=== PATIENT | female | born 1965 | race African-American/Black ===

== ENCOUNTER → 2016-07-24 | Outpatient (CLI) | payer OTHER ==
[~2016-07-24] MED LIST: ACETAMINOPHEN PO; ADVIL200 M2 PO; ALBUTEROL17 GM INH; ALPRAZOLAM PO; AMLODIPINE BESYL5 MG PO; ARIXTRA2.5 MG/0.5 INJ; ASPIRINEC PO; ATENOLOL25 MG PO; AUGMENTIN PO; BENADRYL; BUSPAR PO; CALAN; CALAN PO; CIPRO PO; DARVOCET-N 1001 TAB PO; DEPAKOTE PO; DIVALPROEX SOD500 M1 PO; DOXYCYCLINE150 MG PO; DURAGESIC TOP; FIORICET 50-321 EACH PO; FIORINAL CAPSUL1 CAP PO; FISH OIL 1,2001 CAP PO; FLEXERIL PO; FLEXERIL10 M1 PO; FLEXERIL10 MG PO; GEODAN; HCTZ PO; HYDROCHLOROTH12.5 MG PO; HYDROCHLOROTHIA25 MG PO; IMITREX PO; INVEGA PO; KCL PO; KEFLEX PO; KLONOPIN PO; LASIX PO; LISINOPRIL PO; LORTAB 7.5-5001 TAB PO; METOPROLOL TART25 MG PO; MOBIC PO; MULTIVITAMIN WOMENS; NEURONTIN100 MG PO; NORCO 7.5-3251 EACH PO; NORVASC PO; NORVASC10 MG PO; ORUDIS75 M1 DOB; PARAFON FORTE500 MG PO; PATIENT'S PHARMACY; PERCOCET5/325 PO; PROTONIX PO; PROZAC PO; PYRIDIUM PO; SEROQUEL XR150 MG PO; TOPROL XL PO; TRAMADOL HCL50 M1 PO; TRILEPTAL PO; TYLENOL #3; VERAPAMIL ER PO; VICODIN 5/500 T1 TAB PO; VICODIN PO; VOLTAREN75 MG PO; ZANTAC PO
--- NOTE | ~2016-07-24 | CR63 ---
[facility] A Service [facility] RADIOLOGY TEXT RESULTS PATIENT: JAKE ORTIZ LOCATION: [facility] : 61 UNIT #: [id number] AGE: [address]: Joanna Lund MD SEX: F ORDER DR: [id number] [facility] [address] [place], [place] [address] [id number] O MR#: [id number] Acc #: [id number] NAME: JAKE ORTIZ : 1965 SEX: F STUDY DATE/TIME: 07/24/2016 11:53 UNIT: [facility] ROOM: STUDY DESCRIPTION: CR Chest 2 View Attending Physician: Joanna Lund M.D. Referring Physician: Joanna Lund M.D. Ordering Physician: Joanna Lund M.D. Primary Care Physician: Stan Anand M.D. MEDICAL IMAGING REPORT This report is preliminary unless electronic signature is present EXAM PA and lateral chest HISTORY Preop right wrist surgery. COMPARISON 08/27/2014 FINDINGS PA and lateral examination of the chest upright shows a good expansion of the parenchyma with a normal distribution of the pulmonary vascularity. There is no indication of congestion, effusion, infiltrate, tumor, or nodular density. The pleural reflections and diaphragmatic contours are normal. The cardiac silhouette and mediastinal anatomy is within normal limits. IMPRESSION Normal chest. Dictated by... Crispin García M.D. THIS IS AN ELECTRONICALLY VERIFIED REPORT Crispin García M.D. at 07/25/2016 2:08 PM LISBETH/radha TD: 07/24/2016 15:34 JOB #: [id number] MEDICAL IMAGING REPORT [facility] A Service [facility] RADIOLOGY TEXT RESULTS PATIENT: JAKE ORTIZ LOCATION: [facility] : 61 UNIT #: [id number] AGE: [address]: Joanna Lund MD SEX: F ORDER DR: COPY
--- NOTE | ~2016-07-24 | EKG ---
PATIENT: JAKE ORTIZ UNIT #: [id number] Ventricular Rate: 67 BPM Atrial Rate: 67 BPM P-R Interval: 176 ms QRS Duration: 86 ms Q-T Interval: 396 ms QTC Calculation(Bezet): 418 ms P Otoe: 58 degrees Calculated R Otoe: 27 degrees Calculated T Otoe: 48 degrees Diagnosis Line: Normal sinus rhythm Diagnosis Line: Normal ECG Diagnosis Line: When compared with ECG of 30-NOV-2013 12:08, Diagnosis Line: No significant change was found Diagnosis Line: Confirmed by ELVIN MAURICIO MD ([id number]) on Diagnosis Line: 07/24/2016 4:15:56 PM INTERPRETING MD: LULY RUBY
[2016-07-24 11:49] LABS: HEMATOCRIT 39.2 % (35.0-45.0); HEMOGLOBIN 12.9 gm/dL (12.0-16.0); MEAN CELL VOLUME 93.6 FL (83-96); MEAN CORPUSCULAR HEMOGLOBIN 30.9 PG (28-34); MEAN CORPUSCULAR HGB CONC 33.1 g/dL (30-36); MEAN PLATELET VOLUME 9.1 FL (6.5-11.5); RED BLOOD COUNT 4.19 X10e (3.90-5.30); RED CELL DISTRIBUTION WIDTH 14.7 % (11.0-15.5); WHITE BLOOD COUNT 5.7 X10e3 (4.0-10.5)
[2016-07-24 11:52] LABS: URINE APPEARANCE CLEAR; URINE BILIRUBIN NEG (NEG); URINE BLOOD NEG (NEG); URINE COLOR YELLOW; URINE GLUCOSE NEG (NEG); URINE KETONE NEG (NEG); URINE LEUKOCYTE ESTERASE NEG (NEG); URINE NITRATE NEG (NEG); URINE PH 7.5 (5-8); URINE PROTEIN NEG (NEG); URINE SPECIFIC GRAVITY 1.018 (1.003-1.035); URINE UROBILINOGEN 0.2 MG/DL (NEG)
[2016-07-24 11:57] LABS: URINE SOURCE CLEAN CATCH
[2016-07-24 12:14] LABS: BLOOD UREA NITROGEN 12 mg/dL (9-23); BUN/CREATININE RATIO 13.33; CALCIUM SERUM 9.3 mg/dL (8.4-10.2); CARBON DIOXIDE 29 mmol/L (22-31); CHLORIDE 104 mmol/L (100-111); CREATININE SERUM 0.9 mg/dL (0.6-1.4); GLOM FILT RATE Estimated ABOVE60 mL/min (>60); GLUCOSE FASTING 111 mg/dL (70-110); POTASSIUM 4.2 mmol/L (3.5-5.1); SODIUM 139 mmol/L (135-145)
== END | disposition home or self-care (01) ==
LOC: CAMB 10:46
PROVIDERS: Orthopaedic Surgery
DX: Z01.818 Encounter for other preprocedural examination (principal); M65.4 Radial styloid tenosynovitis [de Quervain]
CPT/HCPCS: 36415; 71020; 80048; 81003; 85027; 93005

== ENCOUNTER → 2016-07-27 | Day surgery (SDC) | payer OTHER ==
--- NOTE | ~2016-07-27 | OR ---
Unit #: [id number] #: [id number] Patient: JAKE ORTIZ [id number] [address] [place], [place] [address] [id number] O MR#: [id number] NAME: JAKE ORTIZ ROOM: Date of Procedure: 07/27/2016 Admission Date: 07/27/2016 Surgeon: Joanna Lund M.D. : 1965 Attending Physician: Joanna Lund M.D. Referring Physician: Joanna Lund M.D. Primary Care Physician: Tamika Live M.D. OPERATIVE REPORT PREOPERATIVE DIAGNOSIS De Quervain tendonitis, right wrist. POSTOPERATIVE DIAGNOSIS De Quervain tendonitis, right wrist. PROCEDURE PERFORMED Release of direct De Quervain tendonitis. HISTORY AND FINDINGS The patient is a 51-year-old, who has been having progressively increasing pain, swelling in her right wrist with tenderness and limited motion of her thumb. She has a positive Ambrosio's. As she failed conservative measures, was offered release. Risks of anesthesia and complications have been reviewed namely injury to the superficial branch of the radial nerve was discussed and possible neuroma and need for further surgery and the patient voices understanding and wishes to proceed. DESCRIPTION OF PROCEDURE After induction of general anesthesia, the patient's right wrist was prepped and draped in the usual sterile manner. Time-out was called. Operative site was confirmed and then a longitudinal skin incision was made over the radial styloid approximately 2 cm long. Incision was deepened down and by sharp dissection, carried down to the subcutaneous tissue, following which a blunt dissection was carried retracting the superficial nerve on either side of the incision. The extensor retinaculum over the first dorsal compartment was found to be quite thick and also there appeared to have calcification of the sheath, so using a 15 blade, an incision was made over the dorsal sheath and using a tenotomy scissors, the first dorsal compartment was released both proximally and distally. Care was taken to avoid any injury to the tendons in the first dorsal compartment and a portion of the sheath was sent for histopathology as she had some calcification possibly a uric deposition. Then, the tendon was explored and no second compartment was identified. The wrist was flexed and extended and confirmed no volar subluxation of the tendons of the first dorsal compartment namely the abductor pollicis and the extensor pollicis brevis. The wound was copiously irrigated. Hemostasis was obtained. 4-0 nylon was used to approximate the skin. Sterile compression dressing was applied. Tourniquet was let down. Blood loss minimal. The patient received preoperative antibiotics. Tolerated the procedure well and was transferred to the recovery room in satisfactory condition. Unit #: [id number] #: [id number] Patient: JAKE ORTIZ POSTOPERATIVE INSTRUCTIONS 1. Ice packs to the right wrist and range of motion to the fingers. 2. Percocet 5 mg q.6 to 8 hours p.r.n. 3. She was given a followup appointment and return to my office in 10 days. If any problems, to contact me. Dictated by... Nolan Kim/jessica TD: 07/27/2016 12:58 JOB #: [id number] OPERATIVE REPORT X Joanna Lund MD X PROCEDURE OPERATIVE NOTE
== END | disposition home or self-care (01) ==
LOC: CSUR 06:32
DX: M65.4 Radial styloid tenosynovitis [de Quervain] (principal); D64.9 Anemia, unspecified; F17.210 Nicotine dependence, cigarettes, uncomplicated; Z87.442 Personal history of urinary calculi; Z88.8 Allergy status to other drugs, medicaments and biological substances; Z90.49 Acquired absence of other specified parts of digestive tract; Z98.51 Tubal ligation status; Z98.890 Other specified postprocedural states
CPT/HCPCS: 88304; J0690; J2250; J3010

== ENCOUNTER → 2016-10-12 | Outpatient (CLI) | payer OTHER ==
[~2016-10-12] MED LIST changes: +MULTI VITAMIN1 EACH PO; +TYLENOL #3 PO
--- NOTE | ~2016-10-12 | CR151 ---
[facility] A Service of [facility] RADIOLOGY TEXT RESULTS PATIENT: JAKE ORTIZ LOCATION: [facility] : 61 UNIT #: [id number] AGE: [address]: Joanna Lund MD SEX: F ORDER DR: [id number] [facility] [address] [facility]. [place], [place] [address] [id number] O MR#: [id number] Acc #: [id number] NAME: JAKE ORTIZ : 1965 SEX: F STUDY DATE/TIME: 10/12/2016 13:22 UNIT: [facility] ROOM: STUDY DESCRIPTION: CR Hip Min 2 Views Rt Attending Physician: Joanna Lund M.D. Referring Physician: Joanna Lund M.D. Ordering Physician: Joanna Lund M.D. Primary Care Physician: Stan Anand M.D. MEDICAL IMAGING REPORT This report is preliminary unless electronic signature is present EXAM Right hip, 10/12/16. INDICATIONS Osteoarthritis in a 51-year-old female. Hip and knee pain on the right, knee giving out. History of right femur fracture. Symptoms began 2-3 years ago. TECHNIQUE Two views of the right hip. COMPARISON 11/29/13 FINDINGS There is an old healed fracture deformity of the right hip. Residual metallic densities intimately associated with the right hip persist and are not significantly changed. These may reflect sequela of the prior trauma or surgical procedures. Correlate clinically. No acute fracture. There is no significant degenerative change of the right hip. Bony pelvis intact. IMPRESSION 1. No acute fracture. Chronic postoperative/post traumatic changes of the right hip. No significant change from the prior study. Dictated by... Francisco Saxena M.D. THIS IS AN ELECTRONICALLY VERIFIED REPORT Francisco Saxena M.D. at 10/16/2016 11:51 AM JOSSY/shanice [facility] A Service [facility] RADIOLOGY TEXT RESULTS PATIENT: JAKE ORTIZ LOCATION: [facility] #: [id number] : 61 UNIT #: [id number] AGE: [address]: Joanna Lund MD SEX: F ORDER DR: TD: 10/12/2016 19:44 JOB #: [id number] MEDICAL IMAGING REPORT Page 1 of 1 COPY
--- NOTE | ~2016-10-12 | CR170 ---
[facility] A Service of [facility] RADIOLOGY TEXT RESULTS PATIENT: JAKE ORTIZ LOCATION: [facility] : 61 UNIT #: [id number] AGE: [address]: Joanna Lund MD SEX: F ORDER DR: [id number] [facility] [address] [facility] [place], [place] [address] [id number] O MR#: [id number] Acc #: [id number] NAME: JAKE ORTIZ : 1965 SEX: F STUDY DATE/TIME: 10/12/2016 13:22 UNIT: [facility] ROOM: STUDY DESCRIPTION: CR Knee 2 Views Rt Attending Physician: Joanna Lund M.D. Referring Physician: Joanna Lund M.D. Ordering Physician: Joanna Lund M.D. Primary Care Physician: Stan Anand M.D. MEDICAL IMAGING REPORT This report is preliminary unless electronic signature is present EXAM Right knee 10/12/2016 HISTORY 51-year-old female complaining of right knee pain for 2-3 years. She reports the knee gives out. History of right femoral fracture. TECHNIQUE 2 views of the right knee. COMPARISON Right femur series 08/17/2009. FINDINGS 2 views of the right knee demonstrate that the previously placed medullary fernando has been removed. Probable small bone infarct in the distal aspect of the femur or postoperative change related to surgical hardware placement and subsequent removal. No acute fracture. No joint effusion. No significant degenerative change. Incidental benign appearing sclerotic lesion in the proximal medial tibia, unchanged. IMPRESSION 1. No acute fracture. No joint effusion. 2. Benign bone lesion in the proximal tibia and sequela of hardware removal in the femur. Dictated by... Francisco Saxena M.D. THIS IS AN ELECTRONICALLY VERIFIED REPORT Francisco Saxena M.D. at 10/16/2016 11:51 AM [facility] A Service [facility] RADIOLOGY TEXT RESULTS PATIENT: JAKE ORTIZ LOCATION: [facility] #: [id number] : 61 UNIT #: [id number] AGE: [address]: Joanna Lund MD SEX: F ORDER DR: JOSSY/abiel TD: 10/12/2016 20:10 JOB #: [id number] MEDICAL IMAGING REPORT Page 1 of 1 COPY
== END | disposition home or self-care (01) ==
LOC: CRAD 13:10
DX: M16.11 Unilateral primary osteoarthritis, right hip (principal); Z98.890 Other specified postprocedural states; M89.8X6 Other specified disorders of bone, lower leg
CPT/HCPCS: 73502; 73560

== ENCOUNTER 2017-02-03 14:31 | Emergency (ER) | payer OTHER ==
[~2017-02-03] VITALS: Ht 170.2 cm; Wt 57.4 kg
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
[~2017-02-03 14:31] MED LIST changes: -MULTI VITAMIN1 EACH PO; -TYLENOL #3 PO
[2017-02-03 15:36] LABS: BASOPHIL% 0.6 % (0-2.5); HEMATOCRIT 47.3 % (35.0-45.0); LYMPHOCYTE# 2.6 X10e3 (1.0-3.5); MEAN CELL VOLUME 91.2 FL (83-96); MEAN CORPUSCULAR HEMOGLOBIN 30.9 PG (28-34); MEAN CORPUSCULAR HGB CONC 33.9 g/dL (30-36); MEAN PLATELET VOLUME 7.7 FL (6.5-11.5); MONOCYTE# 0.6 X10e3 (0-1.0); NEUTROPHIL% 60.4 % (40-75); PLATELET COUNT 414 X10e3 (140-420); RED BLOOD COUNT 5.18 X10e (3.90-5.30); WHITE BLOOD COUNT 8.3 X10e3 (4.0-10.5)
[2017-02-03 15:38] LABS: DIFF IND NO
[2017-02-03 16:01] LABS: ALBUMIN SERUM 5.1 g/dL (3.5-5.0); BILIRUBIN, DIRECT 0.1 mg/dL (0.0-0.2); BILIRUBIN,INDIRECT 1.2 mg/dL (0.0-0.9); BILIRUBIN,TOTAL 1.3 mg/dL (0.2-2.0); BUN/CREATININE RATIO 16.66; CALCIUM SERUM 10.9 mg/dL (8.4-10.2); CREATININE SERUM 0.9 mg/dL (0.6-1.4); GLOM FILT RATE Estimated 84.7 mL/min (>60); POTASSIUM 3.9 mmol/L (3.5-5.1); PROTEIN TOTAL SERUM 9.8 g/dL (6.0-8.3)
[2017-02-03 17:19] LABS: URINE SOURCE CLEAN CATCH
[2017-02-03 17:25] LABS: URINE APPEARANCE CLEAR; URINE BLOOD NEG (NEG); URINE COLOR DK YELLOW; URINE GLUCOSE NEG (NEG); URINE KETONE 1+ (NEG); URINE LEUKOCYTE ESTERASE TRACE (NEG); URINE NITRATE NEG (NEG); URINE PH 6.5 (5-8); URINE PROTEIN 3+ (NEG); URINE SPECIFIC GRAVITY 1.033 (1.003-1.035)
[2017-02-03 17:28] LABS: URINE BACTERIA AUWI NEG (NEGATIVE); URINE SQUAMOUS EPITHELIAL CELL FEW /[HPF]
[2017-02-03 17:35] LABS: AMPHETAMINE NEG (NEG); BARBITURATES NEG (NEG); BENZODIAZEPINES POS (NEG); COCAINE POS (NEG); MARIJUANA POS (NEG); OPIATES POS (NEG); TRICYCLIC ANTIDEPRESSANTS NEG (NEG); U METHADONE NEG (NEG)
[2017-02-03 17:44] LABS: CULTURE INDICATED? NO; URINE BILIRUBIN NEG (NEG)
[2017-02-03 17:45] LABS: URINE MUCUS PRESENT
[2017-02-13] MEDS ORDERED: MULTI VITAMIN1 EACH PO (13:59)
[2017-02-13] MEDS ORDERED: TYLENOL #3 PO (14:01)
== END 2017-02-03 18:20 | disposition home or self-care (01) ==
LOC: CED 14:31
PROVIDERS: Emergency Medicine
DX: R11.2 Nausea with vomiting, unspecified (principal); R10.32 Left lower quadrant pain; F19.10 Other psychoactive substance abuse, uncomplicated; I10 Essential (primary) hypertension; Z87.442 Personal history of urinary calculi; Z88.8 Allergy status to other drugs, medicaments and biological substances
CPT/HCPCS: 36415; 74176; 80048; 80076; 80307; 81003; 82947; 83690; 85025; 96361; 96374; 96375; 99284; J1885; J2405